=== PATIENT | female | born 1975 | race Caucasian/White ===

== ENCOUNTER 2017-11-13 13:01 | Emergency (ER) | payer MEDICAID ==
[~2017-11-13] VITALS: Ht 170.2 cm; Wt 52.2 kg
[2017-11-13] MEDS ORDERED: Tetanus/Diptheria/Pertussis Vaccine 0.5ml Syr IM ONE (13:30)
[2017-11-13] MEDS ORDERED: Bacitracin Oint UD TOPIC ONE (13:30)
[2017-11-13] MEDS ORDERED: AUGMENTIN 500-1 EACH ORAL (13:41)
[2017-11-13] MEDS ORDERED: IBUPROFEN600 MG ORAL (13:41)
--- NOTE | 2017-11-13 14:17 | Emergency Room Report ---
History of Present Illness General Chief Complaint: Animal Bite Source: Patient Present Illness HPI The patient is a 42-year-old female presenting for dogbite to the right hand which occurred just prior to arrival. This was a known dog who is up-to-date with immunizations. Pain is a 5/10 dull ache to the right hand and does not radiate. She did have some bleeding. Pain worse with touch. She denies any other symptoms including fever, chills, numbness Last tetanus shot unknown Allergies: Coded Allergies: No Known Allergies (Unverified , 11/13/17) Patient History Past Medical History: see triage record Pertinent Family History: none Last Menstrual Period: 10/20/17 Now: No Reviewed Nursing Documentation: PMH: Agreed, PSxH: Agreed Nursing Documentation-PMH Hx Diabetes: No - Gerhard Review of Systems All Other Systems: negative except mentioned in HPI Physical Exam Vital Signs Date Time Temp Pulse Resp B/P (MAP) Pulse Ox O2 Delivery O2 Flow Rate FiO2 11/13/17 13:06 97.9 99 16 115/82 98 Sp02 EP Interpretation: reviewed, normal General Appearance: no apparent distress, alert, GCS 15, non-toxic Head: normocephalic, atraumatic Eyes: bilateral eye normal inspection, bilateral eye PERRL ENT: hearing grossly normal, normal pharynx, no angioedema, normal voice Musculoskeletal: back normal, gait/station normal, normal range of motion, tender - TTP over the R hand laceration Neurologic: alert, oriented x3, responsive, motor strength/tone normal, sensory intact, speech normal Psychiatric: judgement/insight normal, memory normal, mood/affect normal, no suicidal/homicidal ideation Skin: laceration - 2cm laceration to the R hand distal to 2nd MCPJ with some surrounding abrasions Lymphatic: no adenopathy Medical Decision Making PA Attestation Dr. Rucker is my supervising physician. Patient management was discussed with my supervising physician Diagnostic Impression: Primary Impression: Dog bite of extremity ER Course The patient is a 42-year-old female presenting for dogbite to the right hand which occurred just prior to arrival Ddx considered include but not limited to fracture, tendon/ligament injury, avulsion, nerve damage PE: NAD 2cm laceration to the R hand distal to 2nd MCPJ with some surrounding abrasions. Full AROM intact. SILT The wound is cleaned extensively with normal saline and Betadine. Bacitracin applied with dressing. She is given a tetanus shot as well as first dose of antibiotics. She is discharged home with Augmentin. ER precautions are given Last Vital Signs Date Time Temp Pulse Resp B/P (MAP) Pulse Ox O2 Delivery O2 Flow Rate FiO2 11/13/17 13:06 97.9 99 16 115/82 98 Status: improved Disposition: HOME, SELF-CARE Condition: Improved Scripts Ibuprofen* (MOTRIN*) 600 Mg Tablet 600 MG ORAL Q8H Y for For Pain, #30 TAB 0 Refills Prov: BRENDON LOZA 11/13/17 Amoxicillin/Potassium Clav 500-125 Tablet* (AUGMENTIN 500-125 TABLET*) 1 Each Tablet 1 TAB ORAL THREE TIMES A DAY, #15 TAB Prov: BRENDON LOZA 11/13/17 Referrals: [facility]ERR[facility] (PCP) Patient Instructions: Animal Bite Additional Instructions: I discussed my findings with the patient. All questions and concerns have been answered. Treatment and medication compliance have been addressed. I advised the patient that they need to follow up with PMD in 3-5 days. Return to ED if symptoms worsen, new symptoms arise, or if needed for any reason. Patient verbalized understanding of discharge instructions. BRENDON LOZA Nov 13, 2017 14:17
[2017-11-13 14:40] VITALS: BP 115/82
== END 2017-11-13 19:30 | disposition home or self-care (01) ==
LOC: EMR 13:39
DX: S61.451A Open bite of right hand, initial encounter (principal); Z23 Encounter for immunization; E06.3 Autoimmune thyroiditis; W54.0XXA Bitten by dog, initial encounter; Y92.9 Unspecified place or not applicable
CPT/HCPCS: 90471; 90715; 99284